=== PATIENT | female | born 1995 | race Two or more races ===

== ENCOUNTER 2022-11-13 11:25 | Emergency (ER) | payer OTHER ==
[~2022-11-13] VITALS: Ht 172.7 cm; Wt 76.7 kg
[2022-11-13] MEDS ORDERED: NORFLEX100MG PO (15:40)
[2022-11-13] MEDS ORDERED: KETO10TA2 PO (15:40)
== END 2022-11-13 16:01 | disposition home or self-care (01) ==
LOC: ER 11:25
DX: M54.50 Low back pain, unspecified (principal); M62.830 Muscle spasm of back

== ENCOUNTER 2023-05-15 11:08 | Emergency (ER) | payer OTHER ==
[~2023-05-15] VITALS: Ht 172.7 cm; Wt 76.2 kg
[~2023-05-15 11:08] MED LIST: KETO10TA2 PO; NORFLEX100MG PO
== END 2023-05-15 13:05 | disposition home or self-care (01) ==
LOC: ER 11:08
DX: K13.70 Unspecified lesions of oral mucosa (principal)